=== PATIENT | male | born 1960 | race Caucasian/White ===

== ENCOUNTER 2020-04-05 08:25 | Day surgery (SDC) | payer BC ==
[~2020-04-05] VITALS: Ht 177.8 cm; Wt 111.7 kg
[~2020-04-05 08:25] MED LIST: AMIT10 PO; ATEN25; Bactrim Ds Tab1 EACH PO; CEPH500 PO; CIPR500 PO; CLOT1TC TOP; CYCL10 PO; DIAZ5 PO; DICMIS50EC PO; Diflucan100 MG PO; HYDACE5 PO; HYDCHL12.5 PO; HYDMOR2 PO; IBUP800 PO; LEVFLO500 PO; LISI5; MELO7.5; METF500 PO; NAPR500; NAPR500 PO; OMEP20ER PO; ONDA8ODT MM; OXYACE5T PO; OXYACE7.5T PO; PARO20; PRED20 PO; PROM25 PO; Percocet 5-3251 EACH PO; RXCEPH500 PO; RXHYDACE PO; RXHYDMOR2 PO; RXONDA4ODT MM; RXOXYACE PO; SPIHYD; TAMS.4ER PO; UNK BP MED; Zofran Odt4 MG SL
--- NOTE | 2020-04-05 09:07 | NUR ---
Ambulatory in Day Surgery History, Chart, Medications and Allergies reviewed before start of procedure. Lungs clear T/O to Auscultation. Patient confirms NPO status and agrees with scheduled surgery. Pre-Op teaching done. Pt verbalizes understanding. Patient States Post-Procedure ride home has been arranged.
--- NOTE | 2020-04-05 09:24 | NUR ---
04/05/20 0924 Sharon Khanna PATIENT DETERMINED TO BE ASA APPROPRIATE FOR PROPOFOL SEDATION PRIOR TO START OF PROCEDURE BY DR. HAM. 3-LEAD EKG REVIEWED WITH PHYSICIAN PRIOR TO START OF PROCEDURE. PATIENT CONFIRMS NPO STATUS AND AGREES WITH SCHEDULED PROCEDURE. History, Chart, Medications and Allergies reviewed before start of procedure. MONITOR INTACT WITH CONTINUOUS PULSE OXIMETRY AND INTERMITTENT BP. O2 VIA N/C @3L INTACT THROUGHOUT SEDATION/PROCEDURE.
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
== END 2020-04-05 23:05 | disposition home or self-care (01) ==
LOC: ORSCMMR 08:25 → ORD 08:25
PROVIDERS: Internal Medicine Gastroenterology
PROC: 0DJD8ZZ Inspection of Lower Intestinal Tract, Via Natural or Artificial Opening Endoscopic (ICD-10-PCS; principal; 2020-04-05 09:00)
DX: Z12.11 Encounter for screening for malignant neoplasm of colon (principal); E11.9 Type 2 diabetes mellitus without complications; Z86.010 Personal history of colon polyps; K21.9 Gastro-esophageal reflux disease without esophagitis; E66.01 Morbid (severe) obesity due to excess calories; Z68.36 Body mass index [BMI] 36.0-36.9, adult; Z79.84 Long term (current) use of oral hypoglycemic drugs; Z79.899 Other long term (current) drug therapy
CPT/HCPCS: 82947; J2405; J2704; J7120

== ENCOUNTER 2020-04-06 06:47 | Day surgery (SDC) | payer BC ==
[~2020-04-06] VITALS: Ht 177.8 cm; Wt 113.3 kg
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
--- NOTE | 2020-04-06 07:34 | NUR ---
04/06/20 0734 Sharon Khanna 1500ML TAP WATER ENEMA IL GIVEN IN LEFT SIDE LYING POSITION, RUBENS WELL. PT IS NOW SITTING ON COMMODE, INST TO HOLD FOR 5 MIN, WILL ASSESS CONTENT TO .
--- NOTE | 2020-04-06 09:16 | NUR ---
Discharge instructions reviewed with patient. Patient verbalizes understanding. Copy given to patient to take home. PT AMBULATED TO BATHROOM, DRESSED. Patient States Post-Procedure ride home has been arranged. Discharged via wheelchair to private car for ride home.
== END 2020-04-06 09:21 | disposition home or self-care (01) ==
LOC: ORD 06:47 → ORSCMMR 06:47 → ORD 07:30
PROVIDERS: Internal Medicine Gastroenterology
PROC: 0DBN8ZX Excision of Sigmoid Colon, Via Natural or Artificial Opening Endoscopic, Diagnostic (ICD-10-PCS; principal; 2020-04-06 07:30)
PROC: 0DBL8ZX Excision of Transverse Colon, Via Natural or Artificial Opening Endoscopic, Diagnostic (ICD-10-PCS; principal; 2020-04-06 07:30)
DX: Z12.11 Encounter for screening for malignant neoplasm of colon (principal); D12.3 Benign neoplasm of transverse colon; K63.5 Polyp of colon; Z86.010 Personal history of colon polyps; E11.9 Type 2 diabetes mellitus without complications; E78.00 Pure hypercholesterolemia, unspecified; K21.9 Gastro-esophageal reflux disease without esophagitis; E66.01 Morbid (severe) obesity due to excess calories; Z68.36 Body mass index [BMI] 36.0-36.9, adult; Z79.899 Other long term (current) drug therapy; Z79.84 Long term (current) use of oral hypoglycemic drugs; I10 Essential (primary) hypertension
CPT/HCPCS: 82947; 88305; J2405; J2704; J7120

== ENCOUNTER 2021-01-30 10:53 | Day surgery (SDC) | payer OTHER ==
[~2021-01-30] VITALS: Ht 177.8 cm; Wt 109.0 kg
[2021-01-30] MEDS ORDERED: Adipex-P37.5 M1 PO (11:05)
[2021-01-30] MEDS ORDERED: OZEMPIC1 MG/0.72 SQ (11:05)
[2021-01-30] MEDS ORDERED: Restoril7.5 MG PO (11:06)
[2021-01-30] MEDS ORDERED: GLIP5 PO (11:06)
[2021-01-30] MEDS ORDERED: NOVOLOG100 UNIT/2 SC (11:06)
[2021-01-30] MEDS ORDERED: CELE100 PO (11:06)
[2021-01-30] MEDS ORDERED: ATOR40TA PO (11:07)
[2021-01-30] MEDS ORDERED: BYDUREON B2 MG/0.81 SC (11:11)
[2021-01-30] MEDS ORDERED: BASAGLAR K100 UNIT/3 SC (11:11)
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
== END 2021-01-30 15:09 | disposition home or self-care (01) ==
LOC: ORSCSDS 10:53
PROVIDERS: Orthopaedic Surgery
PROC: 0LM40ZZ Reattachment of Left Upper Arm Tendon, Open Approach (ICD-10-PCS; principal; 2021-01-30 12:00)
PROC: 0LN40ZZ Release Left Upper Arm Tendon, Open Approach (ICD-10-PCS; principal; 2021-01-30 12:00)
DX: S46.312A Strain of muscle, fascia and tendon of triceps, left arm, initial encounter (principal); M62.429 Contracture of muscle, unspecified upper arm; I10 Essential (primary) hypertension; E11.9 Type 2 diabetes mellitus without complications; G47.33 Obstructive sleep apnea (adult) (pediatric); Z79.4 Long term (current) use of insulin; Z79.899 Other long term (current) drug therapy; E66.9 Obesity, unspecified; Z68.34 Body mass index [BMI] 34.0-34.9, adult
CPT/HCPCS: 82947; A9270; C1713; J0690; J1100; J1885; J2250; J2405; J2704; J2795; J3010; J7120

== ENCOUNTER 2022-06-13 09:08 | Day surgery (SDC) | payer OTHER ==
[~2022-06-13] VITALS: Ht 177.8 cm; Wt 108.3 kg
[~2022-06-13 09:08] MED LIST changes: +ATOR40TA PO; +Adipex-P37.5 M1 PO; +BASAGLAR K100 UNIT/3 SC; +BYDUREON B2 MG/0.81 SC; +CELE100 PO; +GLIP5 PO; +NOVOLOG100 UNIT/2 SC; +OZEMPIC1 MG/0.72 SQ; +Restoril7.5 MG PO
--- NOTE | 2022-06-13 11:50 | NUR ---
06/13/22 1150 Khoa Lee IV REMOVED.
--- NOTE | 2022-06-13 12:01 | NUR ---
06/13/22 1201 Wild Rey PT MONITORED BY [email or web address].
[2022-06-13 12:13] VITALS: BP 120/71
== END 2022-06-13 12:46 | disposition home or self-care (01) ==
LOC: ORSCSDS 09:08
PROVIDERS: Orthopaedic Surgery
PROC: 01N54ZZ Release Median Nerve, Percutaneous Endoscopic Approach (ICD-10-PCS; principal; 2022-06-13 10:45)
DX: G56.03 Carpal tunnel syndrome, bilateral upper limbs (principal); I10 Essential (primary) hypertension; E11.9 Type 2 diabetes mellitus without complications; F32.A Depression, unspecified; Z79.4 Long term (current) use of insulin; Z79.84 Long term (current) use of oral hypoglycemic drugs; Z79.899 Other long term (current) drug therapy
CPT/HCPCS: 82947; J0690; J2250; J7120